=== PATIENT | female | born 1960 | race Caucasian/White ===

== ENCOUNTER 2017-02-07 08:55 | Day surgery (SDC) | payer OTHER ==
[~2017-02-07] VITALS: Ht 172.7 cm; Wt 76.7 kg
[~2017-02-07 08:55] MED LIST: LEVOTHYROXINE200 MCG PO; LISINOPRIL-HCT1 EACH PO
--- NOTE | 2017-02-07 10:27 | NUR ---
02/07/17 1027 Gypys Manzo PT RESPONCED, AIRWAY REMOVED AT 1024.
--- NOTE | 2017-02-10 08:29 | OR ---
[facility] [address] [place], [place] [address] Signed DATE OF PROCEDURE: 02/07/17 PREOPERATIVE DIAGNOSES Father with a history of colon cancer in his 70s. Brother with a history of colonic polyps. Benign hepatic lesion in 2014 (tattoo). POSTOPERATIVE DIAGNOSES Hepatic flexure tattoo. 5 mm polyp at 105 cm. 5 cm polyp at 10 cm. PROCEDURE: Colonoscopy without biopsy. ESTIMATED BLOOD LOSS: None. INDICATIONS Ivy is a 56-year-old female, who in 2013 underwent a colonoscopy. She had a polypoid lesion at the hepatic flexure. Apparently, it was technically difficult to remove. The pathologist felt it was benign. There was quite a bit of cautery. The tattoo had been left. In addition, her father had colon cancer in his 70s and her brother had colonic polyps removed. Consequently, Ivy returns now for a follow-up colonoscopy. She says she has been doing great in the meantime. I gave her a pamphlet on colonoscopy in the office and we reviewed that together. She understands there is risk including but not limited to gas bloating, crampy abdominal pain, bleeding, perforation requiring surgery, and missed diagnosis. She also understands the need for IV conscious sedation. They had trouble keeping her asleep at her previous colonoscopy. Consequently, Propofol had been recommended. It appears this is related to her history of daily alcohol use. I reviewed this with her. She expressed understanding and wished to proceed. PROCEDURE NOTE Ivy was taken into our endoscopy suite and placed in the left lateral decubitus position. She was given IV sedation with Propofol per nurse fashion stylist. As expected, she took a lot of Propofol for the procedure. A digital rectal exam was performed and this was unremarkable. The adult colonoscope was then introduced and advanced all the way into the cecum under di rect visualization of camera without difficulty. Her prep was moderate. The scope was then slowly withdrawn. We could easily see 2 tattoos at hepatic flexure. We looked at the area carefully and irrigated that area and we saw no evidence of any recurrent lesions. Then somewhere in the distal transverse colon or splenic flexure, she had a polyp at 105 cm. It was about 5 mm in size. It was easily removed with hot biopsy forceps. Another polyp was found in the rectum at 10 cm, also removed with a hot biopsy forceps. Upon retroflexion of scope, there was no additional Electronically Signed By: JENNIFER GOMES MD 02/10/17 0829 PATIENT NAME: IVY ARMSTRONG ANN OPERATIVE REPORT DATE OF : 62 PHYSICIAN: JENNIFER GOMES MD REPORT #: [id number] REPORT IS CONFIDENTIAL AND NOT TO BE RELEASED WITHOUT AUTHORIZATION [facility] [address] [place], [place] [address] Signed pathology noted above the anal canal. After this, the gas was suctioned out and the colonoscope removed. Ivy tolerated the procedure quite well. RECOMMENDATIONS I will see Ivy back in my office in 7-14 days to review her results. Based on her family history and her current findings, it looks like she will need colonoscopy every 5 years. MD PATTIE Pinzon/Arsenio /[id number] cc: Dr. Omega Alvarado Electronically Signed By: JENNIFER GOMES MD 02/10/17 0829 PATIENT NAME: IVY ARMSTRONG ANN OPERATIVE REPORT DATE OF : 62 PHYSICIAN: JENNIFER GOMES MD REPORT #: [id number] REPORT IS CONFIDENTIAL AND NOT TO BE RELEASED WITHOUT AUTHORIZATION
== END 2017-02-07 11:11 | disposition home or self-care (01) ==
LOC: OPS 08:55 → DS 08:55
PROVIDERS: Colon & Rectal Surgery
PROC: 0DBE8ZX Excision of Large Intestine, Via Natural or Artificial Opening Endoscopic, Diagnostic (ICD-10-PCS; 2017-02-07)
PROC: 0DBP8ZX Excision of Rectum, Via Natural or Artificial Opening Endoscopic, Diagnostic (ICD-10-PCS; principal; 2017-02-07 08:30)
DX: Z12.11 Encounter for screening for malignant neoplasm of colon (principal); K62.1 Rectal polyp; I10 Essential (primary) hypertension; F17.210 Nicotine dependence, cigarettes, uncomplicated; Z86.010 Personal history of colon polyps; Z80.0 Family history of malignant neoplasm of digestive organs; E03.9 Hypothyroidism, unspecified; Z96.642 Presence of left artificial hip joint; Z90.710 Acquired absence of both cervix and uterus; Z88.8 Allergy status to other drugs, medicaments and biological substances; Z79.899 Other long term (current) drug therapy
CPT/HCPCS: 00810; J2704; J7120

== ENCOUNTER 2020-05-17 12:00 | Day surgery (SDC) | payer OTHER ==
[~2020-05-17] VITALS: Ht 172.7 cm; Wt 75.0 kg
[~2020-05-17 12:00] MED LIST changes: +CATAPRES0.1 MG PO; +FOLIC ACID1 MG PO; +HYDROCHLOROTHIA25 MG; +NORVASC5 MG PO; +PENNSAID112 GM TOP; +TIROSINT200 MCG PO
[2020-05-17] MEDS ORDERED: GABAPENTIN300 MG PO (14:02)
[2020-05-17] MEDS ORDERED: HYDROCODON-ACE1 EA10 PO (14:02)
--- NOTE | 2020-05-18 11:43 | EKG ---
[facility] [address] [facility] [place], [place] [address] Signed Sinus bradycardia Low voltage QRS Borderline ECG No previous ECGs available Confirmed by EDY JOSEPH DO ([id number]) on 05/18/2020 11:43:14 AM Electronically Signed By: EDY JOSEPH DO 05/18/20 1143 PATIENT NAME: IVY ARMSTRONG Electrocardiogram DATE OF : 62 PHYSICIAN: EDY JOSEPH DO REPORT #: [id number] REPORT IS CONFIDENTIAL AND NOT TO BE RELEASED WITHOUT AUTHORIZATION
--- NOTE | 2020-05-19 09:38 | OR ---
[facility] [address] [place], [place] [address] Signed DATE OF OPERATION: 03/17/2020 SURGEON: Richard Vasquez MD PREOPERATIVE DIAGNOSIS: Carpal tunnel syndrome, right. POSTOPERATIVE DIAGNOSIS: Carpal tunnel syndrome, right. PROCEDURE PERFORMED: Carpal tunnel release, right. GARAGE HELPER: None. ANESTHESIA: Husam block. TOURNIQUET TIME: 12 minutes. BRIEF HISTORY: Ivy is a 59-year-old female with progressive worsening of numbness in her arm. She was noted on nerve conduction studies to have both carpal tunnel and cubital tunnel. Risks and benefits of operative treatment discussed with her and she elected to proceed. DESCRIPTION OF PROCEDURE: Once consent was obtained, she was taken to the operating room. After adequate anesthesia, she was placed on the operating table. All downside pressure points well padded. The right arm was prepped and draped in a standard sterile fashion. The Husam block was allowed to established and then 1.5 cm incision was made in the distal wrist crease carried through the skin and subcutaneous tissue. Palmaris longus was identified, retracted, and protected. The transverse carpal ligament was identified under loupe magnification. It was released proximally and dissected free of overlying soft tissue distally. It was then released distally to its distal extent. This was palpated using the [place] elevator and found to be completely released. The wound was copiously irrigated with normal saline, closed with 3-0 nylon and injected with 8 mL of 0.25% plain Marcaine. The wound was dressed with bacitracin, Adaptic, 4 x 8s, and gauze. She Electronically Signed By: RICHARD VASQUEZ MD 05/19/20 0938 PATIENT NAME: IVY ARMSTRONG OPERATIVE REPORT DATE OF : 62 REPORT #: [id number] PHYSICIAN: RICHARD VASQUEZ MD PCP: FAYE BASS REPORT IS CONFIDENTIAL AND NOT TO BE RELEASED WITHOUT AUTHORIZATION [address] [place], [place] [address] Signed tolerated the procedure well. All sponge, needle, and instrument counts were correct. Richard Vasquez MD BA/NIKA /[id number] Copies: ~ Electronically Signed By: RICHARD VASQUEZ MD 05/19/20 0938 PATIENT NAME: IVY ARMSTRONG OPERATIVE REPORT DATE OF : 62 REPORT #: [id number] PHYSICIAN: RICHARD VASQUEZ MD PCP: KALI,FAYE R STATUE MAKER REPORT IS CONFIDENTIAL AND NOT TO BE RELEASED WITHOUT AUTHORIZATION
== END 2020-05-17 14:25 | disposition home or self-care (01) ==
LOC: OPS 12:00 → DS 12:00 → OPS 13:00 → DS 13:00 → OPS 14:25
PROVIDERS: ATTEND Specialist
PROC: 01N50ZZ Release Median Nerve, Open Approach (ICD-10-PCS; principal; 2020-05-17 13:00)
DX: G56.03 Carpal tunnel syndrome, bilateral upper limbs (principal); G62.9 Polyneuropathy, unspecified; G56.20 Lesion of ulnar nerve, unspecified upper limb; I10 Essential (primary) hypertension; E07.9 Disorder of thyroid, unspecified; Z79.899 Other long term (current) drug therapy; Z88.6 Allergy status to analgesic agent; Z79.890 Hormone replacement therapy; Z79.1 Long term (current) use of non-steroidal anti-inflammatories (NSAID); Z88.2 Allergy status to sulfonamides; Z91.048 Other nonmedicinal substance allergy status; Z88.8 Allergy status to other drugs, medicaments and biological substances; Z87.891 Personal history of nicotine dependence
CPT/HCPCS: 01810; 93005; 93010; J0690; J2250; J2405; J2704; J7121

== ENCOUNTER 2024-11-06 18:03 | Emergency (ER) | payer OTHER ==
[~2024-11-06] VITALS: Ht 172.7 cm; Wt 60.9 kg
[~2024-11-06 18:03] MED LIST changes: +GABAPENTIN300 MG PO; +HYDROCODON-ACE1 EA10 PO
[2024-11-06] MEDS ORDERED: MELOXICAM15 MG PO (18:48)
[2024-11-06] MEDS ORDERED: SYNTHROID125 MCG PO (18:48)
[2024-11-06 18:55] LABS: BASOPHILS 1.4 % (0.1-1.2); HEMATOCRIT 35.2 % (34.1-44.9); HEMOGLOBIN 11.9 g/dL (11.2-15.7); LYMPHOCYTES 22.2 % (19.3-51.7); MCHC 33.8 g/dL (32.2-35.5); MCV 109.3 fL (79.4-94.8); MONOCYTES 17.1 % (4.7-12.5); PLATELET COUNT 185 K/uL (182-369); RBC 3.22 M/uL (3.93-5.22)
[2024-11-06 19:23] LABS: ALBUMIN 3.5 g/dL (3.4-5.0); ALBUMIN/GLOBULIN RATIO 0.9 (1.1-2.4); BILIRUBIN, TOTAL 0.6 mg/dL (0.2-1.0); BUN/CREATININE RATIO 19.81 (6.0-28.6); CALCIUM 9.6 mg/dL (8.5-10.1); CREATININE, SERUM 1.06 mg/dL (0.55-1.02); MAGNESIUM 1.7 mg/dL (1.8-2.4); PROTEIN, TOTAL 7.4 g/dL (6.4-8.2); TSH, 3RD GENERATION 0.02 uIU/mL (0.358-3.740)
[2024-11-06] MEDS ORDERED: MAGNESIUM SULFATE 2 GM/50 ML BAG IV ONE (19:45)
[2024-11-06 20:06] LABS: AMPHETAMINES, URINE NEGATIVE (NEGATIVE); BENZODIAZEPINE, URINE POSITIVE (NEGATIVE); BUPRENORPHINE, URINE NEGATIVE (NEGATIVE); CANNABINOID, URINE POSITIVE (NEGATIVE); COCAINE, URINE NEGATIVE (NEGATIVE); ECSTASY, URINE NEGATIVE (NEGATIVE); FENTANYL, URINE NEGATIVE (NEGATIVE); METHADONE, URINE NEGATIVE (NEGATIVE); OPIATES, URINE NEGATIVE (NEGATIVE); OXYCODONE, URINE NEGATIVE (NEGATIVE); PHENCYCLIDINE, URINE NEGATIVE (NEGATIVE)
[2024-11-06] MEDS ORDERED: APIXABAN 5 MG TAB PO ONE (20:30)
[2024-11-06] MEDS ORDERED: METOPROLOL SUCCINATE 50 MG TABCR PO ONE (20:30)
[2024-11-06] MEDS ORDERED: ELIQUIS5 MG PO (20:53)
[2024-11-06] MEDS ORDERED: TOPROL XL50 MG PO (20:53)
[2024-11-06 21:17] VITALS: BP 124/83
--- NOTE | 2024-11-07 11:59 | EKG ---
[facility] [address] [facility] [place] [address] Signed Atrial fibrillation with rapid ventricular response Low voltage QRS Septal infarct (cited on or before 06-NOV-2024) Abnormal ECG When compared with ECG of 06-NOV-2024 18:26, (Unconfirmed) Questionable change in QRS axis Nonspecific T wave abnormality now evident in Inferior leads Confirmed by Nicholas Alamo MD ([id number]) on 11/07/2024 11:59:12 AM Electronically Signed By: NICHOLAS ALAMO MD 11/07/24 1159 PATIENT NAME: IVY ARMSTRONG ANN Electrocardiogram DATE OF : 62 PHYSICIAN: NICHOLAS ALAMO MD REPORT #: [id number] REPORT IS CONFIDENTIAL AND NOT TO BE RELEASED WITHOUT AUTHORIZATION
--- NOTE | 2024-11-07 11:59 | EKG ---
[facility] [facility] [address] [place] [address] Signed Atrial fibrillation with rapid ventricular response Low voltage QRS Septal infarct , age undetermined Abnormal ECG When compared with ECG of 17-MAY-2020 13:37, Atrial fibrillation has replaced Sinus rhythm Vent. rate has increased BY 52 BPM Septal infarct is now present Confirmed by Nicholas Alamo MD ([id number]) on 11/07/2024 11:58:50 AM Electronically Signed By: NICHOLAS ALAOM MD 11/07/24 1159 PATIENT NAME: DUNLAPSHAQUILLE RHODESSUPA Electrocardiogram DATE OF : 62 PHYSICIAN: NICHOLAS ALAMO MD REPORT #: [id number] REPORT IS CONFIDENTIAL AND NOT TO BE RELEASED WITHOUT AUTHORIZATION
== END 2024-11-06 21:15 | disposition home or self-care (01) ==
LOC: ED 18:03
PROVIDERS: Emergency Medicine
DX: I48.91 Unspecified atrial fibrillation (principal); Z88.2 Allergy status to sulfonamides; Z88.8 Allergy status to other drugs, medicaments and biological substances; Z79.890 Hormone replacement therapy
CPT/HCPCS: 36415; 71045; 80053; 80307; 83735; 83880; 84439; 84443; 84484; 85025; 93005; 93010; 93242; 93244; 96374; 99285-25; J3475